=== PATIENT | male | born 1995 | race Caucasian/White ===

== ENCOUNTER 2016-09-06 10:00 | Emergency (ER) | payer OTHER ==
[2016-09-06] MEDS ORDERED: KETOROLAC 30 MG/ML VIAL (J1885) As Ordered ONE (10:55)
[2016-09-06 11:00] LABS: BASO % 0.3 % (0.0-1.0); EOS # 0.3 K/mm3 (0.0-0.50); EOS % 1.9 % (0.0-3.0); LARGE UNSTAINED CELL # 0.2 K/mm3 (0.0-0.4); LARGE UNSTAINED CELL % 1.4 % (0.0-4.0); LYMPH # 2.1 K/mm3 (1.5-6.5); LYMPH % 13.9 % (24.0-44.0); MEAN CORPUSCULAR HEMOGLOBIN 31.7 pg (27.0-33.0); MEAN CORPUSCULAR HGB CONC 35.6 g/dl (32.0-36.5); MEAN CORPUSCULAR VOLUME 89.2 fl (80.0-96.0); MONO # 0.6 K/mm3 (0.0-0.8); MONO % 4.2 % (0.0-5.0); NEUTROPHILS # 11.6 K/mm3 (1.8-7.7); NEUTROPHILS % 78.3 % (36.0-66.0); PLATELET COUNT, AUTOMATED 238 k/mm3 (150-450); RED CELL DISTRIBUTION WIDTH 11.9 % (11.5-14.5); WHITE BLOOD COUNT 14.8 K/mm3 (4.0-10.0)
[2016-09-06 11:29] LABS: ALBUMIN/GLOBULIN RATIO 0.98 (1.00-1.93); ALKALINE PHOSPHATASE 74 U/L (45-117); ALT/SGPT 54 U/L (12-78); ANION GAP 6 MEQ/L (8-16); AST/SGOT 41 U/L (15-37); BILIRUBIN,DIRECT 0.2 MG/DL (0.0-0.2); BILIRUBIN,TOTAL 0.6 MG/DL (0.2-1.0); BLOOD UREA NITROGEN 11 MG/DL (7-18); CALCIUM LEVEL 9.1 MG/DL (8.5-10.1); CARBON DIOXIDE LEVEL 30 MEQ/L (21-32); CHLORIDE LEVEL 103 MEQ/L (98-107); GLOMERULAR FILTRATION RATE > 60.0 (>60); GLUCOSE, FASTING 81 MG/DL (70-105); POTASSIUM SERUM 3.9 MEQ/L (3.5-5.1); SODIUM LEVEL 139 MEQ/L (136-145); TOTAL PROTEIN 8.1 GM/DL (6.4-8.2)
[2016-09-06] MEDS ORDERED: ISOVUE-370 76% 100ML VIAL (Q9967) As Ordered ONE (11:36)
--- NOTE | 2016-09-06 12:12 | REP ---
Clinical: Right-sided pain. Technique: Axial contrast enhanced images from the lung bases to the pubic symphysis using 100 ml Isovue 370 intravenous contrast material with coronal and sagittal re-formations. Findings: Mural thickening with excessive submucosal fatty deposition involving the ascending through hepatic flexure of colon is appreciated along with right-sided diverticula and what appears to be surrounding inflammatory changes related to an inflamed diverticulum at the hepatic flexure (image [id number]) suggesting acute right-sided diverticulitis. The appendix is identified and measures up to 10 mm maximal diameter suggesting the possibility of associated appendicitis however no significant focal periappendiceal inflammatory changes are appreciated and findings may be secondary to the suspected diverticulitis. The remainder of the small large bowel is unremarkable. Liver, spleen, pancreas, collapsed gallbladder, bilateral adrenal glands and kidneys are normal. Pelvis demonstrates collapsed bladder and age appropriate prostate/seminal vesicles. No ascites. No free air. No significant adenopathy. Vascular structures are normal. Lung bases are clear. Impression: Findings involving the ascending colon as described above suggest primary right-sided diverticulitis with possible early inflammatory changes to the appendix. Given the excessive fatty deposition within the cecum and ascending colon as well as possible involvement to the terminal ileum, differential diagnosis includes inflammatory bowel disease such as Crohn's disease. Signed by Rony Yao MD 09/06/2016 12:03 P
--- NOTE | 2016-09-06 15:10 | EDDOCDS ---
Physician Documentation [facility] Name: Linwood Yeboah Age: 21 yrs Sex: Male : 1995 Arrival Date: 09/06/2016 Time: 10:00 Bed I5 / M5 Private MD: [facility] Disposition: 09/06/16 14:37 Discharged to Home/Self Care. Impression: Diverticulitis of large intestine without perforation or abscess without bleeding - right sided. . - Condition is Stable. - Discharge Instructions: Clear Liquid Diet, Diverticulitis. - Prescriptions for Cipro 500 mg Oral Tablet - take 1 tablet by ORAL route every 12 hours; 14 tablet. Metronidazole 500 mg Oral Tablet - take 1 tablet by ORAL route every 8 hours; 28 tablet. - Work Release Form - 3 day, Medication Reconciliation, Local Pharmacy Hours form. - Follow up: Emergency Department; When: As needed; Reason: Worsening of conditions. Follow up: [facility]; When: 1 - 2 days; Reason: Wound/Symptom Recheck, Recheck today's complaints, Worsening of conditions, Continuance of care. - Problem is an ongoing problem. - Symptoms have improved. Historical: - Allergies: No known drug Allergies; - Home Meds: 1. none - PMHx: none; - PSHx: elbow, left; Knee surgery- Left; - Social history: Smoking status: Patient uses tobacco products, heavy tobacco smoker. No barriers to communication noted, The patient speaks fluent Hebrew, Speaks appropriately for age. - Family history: Not pertinent. - : The pt / caregiver states he / she is not on anticoagulants. Home medication list is obtained from the patient. - Exposure Risk Screening:: None identified. Vital Signs: 09/06 10:01 BP 138 / 73; Pulse 104; Resp 16; Temp 98.3(O); Pulse Ox 99% ; Weight 90.72 kg / 200 cmb lbs; Height 6 ft. 0 in. (182.88 cm); Pain 4/10; 11:48 BP 124 / 63; Pulse 86; Resp 18; Temp 97.5; Pulse Ox 97% ; Pain 4/10; srm 14:40 BP 119 / 78; Pulse 76; Resp 16; Temp 97.1(O); Pulse Ox 97% on R/A; Pain 4/10; jrd 10:01 Body Mass Index 27.12 (90.72 kg, 182.88 cm) cmb MDM: 10:43 NS 0.9% 1000 ml IV at bolus once ordered. cc10 10:43 ketorolac 30 mg IVP once ordered. cc10 10:43 IV Saline Lock ordered. cc10 10:43 Undress patient appropriately for examination ordered. cc10 10:44 Basic Metabolic Profile Ordered. EDMS 10:44 CBC with Diff Ordered. EDMS 10:44 Lipase Ordered. EDMS 10:44 Liver Profile Ordered. EDMS 10:44 Urinalysis Ordered. EDMS 10:44 CT ABD & PELVIS: IV Contrast Only Ordered. EDMS 10:44 NOTHING BY MOUTH+DIET ordered. EDMS 11:21 Financial registration complete. pm4 11:22 [facility] Payment Agreement was scanned into [employer] and attached to record. pm4 11:36 Basic Metabolic Profile Reviewed. cc10 11:36 CBC with Diff Reviewed. cc10 11:36 Liver Profile Reviewed. cc10 11:36 Lipase Reviewed. cc10 11:36 Urinalysis Reviewed. cc10 15:03 T-Sheet-- Draft Copy was scanned into [employer] and attached to record. gb Administered Medications: 10:56 Drug: NS 0.9% 1000 ml [sodium chloride 0.9 % intravenous solution] Route: IV; Rate: srm bolus; Site: left antecubital; 10:56 Drug: ketorolac 30 mg [ketorolac 30 mg/mL (1 mL) injection solution (1 mL)] Route: IVP; srm Site: left antecubital; 11:26 Follow up: Response: No Adverse Reaction; No significant change. ck1 11:48 Follow up: BP 124 / 63; Pulse 86 bpm; Resp 18 bpm; Temp 97.5; Pulse Ox 97% ; Pain 4/10 srm Adult Signatures: Dispatcher [employer] EDMS Jeanna Winston RN RN srm Susie Rain, Reg Reg gb Chevy Valenzuela RN RN dy [place]iski, Colin, PA-C PA-C cc10 Jose Santamaria, Reg Reg pm4 Kia Esquivel RN ck1 The chart was reviewed and I authenticate all verbal orders and agree with the evaluation and treatment provided.Attachments: 11: [facility] Payment Agreement pm4 15:03 T-Sheet-- Draft Copy gb MTDD
--- NOTE | 2016-09-06 15:10 | EDDOCDS ---
Nurse's Notes [facility] Name: Linwood Yeboah Age: 21 yrs Sex: Male : 1995 Arrival Date: 09/06/2016 Time: 10:00 Bed I5 / M5 [facility] Diagnosis: Diverticulitis of large intestine without perforation or abscess without bleeding-right sided. Presentation: 09/06 10:06 Presenting complaint: Patient states: RLQ pain for the last 2 days. pt denies fevers or dy chills. had some nausea yesterday. pain worse when pt pressed on that area. Risk factors: the patient reports not having a history of previous torsion. Adult Sepsis Screening: The patient does not have new or worsening altered mentation. Patient's respiratory rate is less than 22. Systolic blood pressure is greater than 100. Patient has a qSOFA score of 0- Negative Sepsis Screen. Suicide/Homicide risk assessment- the patient denies having any suicidal and/or homicidal ideations and does not present with any other emotional, behavioral or mental health complaints. Status: The patient is an active duty technical services representative. Transition of care: patient was not received from another setting of care. 10:06 Acuity: DARRIN Level 3 dy 10:06 Method Of Arrival: Walkin/Carried/Asstd dy Triage Assessment: 10:08 General: Appears in no apparent distress. Pain: Location: right lower quadrant Pain dy currently is 3 out of 10 on a pain scale. Pt Declines HIV testing. GI: Reports lower abdominal pain. Historical: - Allergies: No known drug Allergies; - Home Meds: 1. none - PMHx: none; - PSHx: elbow, left; Knee surgery- Left; - Social history: Smoking status: Patient uses tobacco products, heavy tobacco smoker. No barriers to communication noted, The patient speaks fluent [place] Korean, Speaks appropriately for age. - Family history: Not pertinent. - : The pt / caregiver states he / she is not on anticoagulants. Home medication list is obtained from the patient. - Exposure Risk Screening:: None identified. Screenin:53 Screening information is obtained from the patient. Fall risk: No risks identified. srm Assistance ADL's: requires no assistance with activities of daily living. Abuse/DV Screen: The patient / caregiver reports he/she is: not in a situation that causes fear, pain or injury. Nutritional screening: No deficits noted. Advance Directives: There is no active DNR order. home support is adequate. Assessment: 10:59 General: Appears in no apparent distress, Behavior is appropriate for age, cooperative. srm Neurological: No deficits noted. Respiratory: No deficits noted. GI: Abdomen is non- distended Bowel sounds present X 4 quads. Abd is soft X 4 quads Abd is tender to palpation in right lower quadrant. Derm: No deficits noted. 11:26 General: Appears in no apparent distress, comfortable, to be sleeping. Behavior is ck1 appropriate for age, cooperative. Pain: Location: right lower quadrant Pain currently is 4 out of 10 on a pain scale. Neurological: Level of Consciousness is awake, alert, obeys commands, Oriented to person, place, time. GI: Denies nausea, vomiting. Derm: Skin is intact, is healthy with good turgor, Skin is pink, warm & dry. 13:30 Reassessment: Patient appears in no apparent distress at this time. srm 15:07 General: Appears in no apparent distress, Behavior is appropriate for age, cooperative. srm Neurological: No deficits noted. Cardiovascular: No deficits noted. Respiratory: No deficits noted. : No deficits noted. Vital Signs: 10:01 BP 138 / 73; Pulse 104; Resp 16; Temp 98.3(O); Pulse Ox 99% ; Weight 90.72 kg; Height 6 cmb ft. 0 in. (182.88 cm); Pain 4/10; 11:48 BP 124 / 63; Pulse 86; Resp 18; Temp 97.5; Pulse Ox 97% ; Pain 4/10; srm 14:40 BP 119 / 78; Pulse 76; Resp 16; Temp 97.1(O); Pulse Ox 97% on R/A; Pain 4/10; jrd 10:01 Body Mass Index 27.12 (90.72 kg, 182.88 cm) [facility] Vitals: 10:01 Log In Time: September 06, 2016 at 10:00. cmb ED Course: 10:00 Patient visited by Purnima Field. cmb 10:00 Patient moved to Waiting cmb 10:01 [facility] LANIER is Private Physician. cmb 10:02 Patient moved to Pre RCE cmb 10:07 Triage Initiated dy 10:17 Patient moved to Triage 3 dy 10:32 Margarito Tran PA-C is PHCP. cc10 10:32 Taras Butt MD is Attending Physician. cc10 10:38 Patient visited by Margarito Tran PA-C. cc10 10:38 Patient visited by Margarito Tran PA-C. cc10 10:42 Patient moved to I5 / M5 rs6 10:52 The patient / caregiver is instructed regarding the plan of care and ED course. Patient srm has correct armband on for positive identification. Placed in gown. Bed in low position. Call light in reach. 10:52 Basic Metabolic Profile Sent. srm 10:52 CBC with Diff Sent. srm 10:52 Lipase Sent. srm 10:52 Liver Profile Sent. srm 10:52 Urinalysis Sent. srm 10:52 Inserted saline lock: 20 gauge in left antecubital area and blood collected. srm 11:00 Patient visited by Jeanna Winston, SHILOH. srm 11:22 [facility] Payment Agreement was scanned into [employer] and attached to record. pm4 11:27 Patient visited by Kia Esquivel,SHILOH. ck1 11:[address] srm 11:46 Patient moved to I5 / M5 srm 11:49 Patient visited by Jeanna Winston, SHILOH. srm 12:19 CT ABD & PELVIS: IV Contrast Only Returned. EDMS 12:54 Patient visited by Kia Esquivel,SHILOH. ck1 13:30 Discontinued lock intact, bleeding controlled, pressure dressing applied, No srm redness/swelling at site. No procedures done that require assistance. 14:37 [facility] is Referral Physician. cc10 14:40 Patient visited by Dain Salamanca PCA. jrd 15:03 T-Sheet-- Draft Copy was scanned into [employer] and attached to record. gb Administered Medications: 10:56 Drug: NS 0.9% 1000 ml [sodium chloride 0.9 % intravenous solution] Route: IV; Rate: srm bolus; Site: left antecubital; 10:56 Drug: ketorolac 30 mg [ketorolac 30 mg/mL (1 mL) injection solution (1 mL)] Route: IVP; srm Site: left antecubital; 11:26 Follow up: Response: No Adverse Reaction; No significant change. ck1 11:48 Follow up: BP 124 / 63; Pulse 86 bpm; Resp 18 bpm; Temp 97.5; Pulse Ox 97% ; Pain 4/10 [facility] Adult Intake: 13:30 IV: 1000.00ml (NS); Total: 1000.00ml. srm Order Results: Lab Order: Basic Metabolic Profile; SPEC'M 09/06/16 10:48 Test: GLUCOSE, FASTING; Value: 81; Range: 70-105; Units: MG/DL; Status: F Test: BLOOD UREA NITROGEN; Value: 11; Range: 7-18; Units: MG/DL; Status: F Test: CREATININE FOR GFR; Value: 1.10; Range: 0.70-1.30; Units: MG/DL; Status: F Test: GLOMERULAR FILTRATION RATE; Value: > 60.0; Range: >60; Status: F Test: SODIUM LEVEL; Value: 139; Range: 136-145; Units: MEQ/L; Status: F Test: POTASSIUM SERUM; Value: 3.9; Range: 3.5-5.1; Units: MEQ/L; Status: F Test: CHLORIDE LEVEL; Value: 103; Range: 98-107; Units: MEQ/L; Status: F Test: CARBON DIOXIDE LEVEL; Value: 30; Range: 21-32; Units: MEQ/L; Status: F Test: ANION GAP; Value: 6; Range: 8-16; Abnormal: Below low normal; Units: MEQ/L; Status: F Test: CALCIUM LEVEL; Value: 9.1; Range: 8.5-10.1; Units: MG/DL; Status: F Test Note: ; Units are mL/min/1.73 m2 Chronic Kidney Disease Staging per NKF: Stage I & II GFR >=60 Normal to Mildly Decreased Stage III GFR 30-59 Moderately Decreased Stage IV GFR 15-29 Severely Decreased Stage V GFR <15 Very Little GFR Left ESRD GFR <15 on RECYCLE WORKER Lab Order: CBC with Diff; SPEC'M 09/06/16 10:48 Test: WHITE BLOOD COUNT; Value: 14.8; Range: 4.0-10.0; Abnormal: Above high normal; Units: K/mm3; Status: F Test: RED BLOOD COUNT; Value: 4.95; Range: 4.30-6.10; Units: M/mm3; Status: F Test: HEMOGLOBIN; Value: 15.7; Range: 14.0-18.0; Units: g/dl; Status: F Test: HEMATOCRIT; Value: 44.1; Range: 42.0-52.0; Units: %; Status: F Test: MEAN CORPUSCULAR VOLUME; Value: 89.2; Range: 80.0-96.0; Units: fl; Status: F Test: MEAN CORPUSCULAR HEMOGLOBIN; Value: 31.7; Range: 27.0-33.0; Units: pg; Status: F Test: MEAN CORPUSCULAR HGB CONC; Value: 35.6; Range: 32.0-36.5; Units: g/dl; Status: F Test: RED CELL DISTRIBUTION WIDTH; Value: 11.9; Range: 11.5-14.5; Units: %; Status: F Test: PLATELET COUNT, AUTOMATED; Value: 238; Range: 150-450; Units: k/mm3; Status: F Test: NEUTROPHILS %; Value: 78.3; Range: 36.0-66.0; Abnormal: Above high normal; Units: %; Status: F Test: LYMPH %; Value: 13.9; Range: 24.0-44.0; Abnormal: Below low normal; Units: %; Status: F Test: MONO %; Value: 4.2; Range: 0.0-5.0; Units: %; Status: F Test: EOS %; Value: 1.9; Range: 0.0-3.0; Units: %; Status: F Test: BASO %; Value: 0.3; Range: 0.0-1.0; Units: %; Status: F Test: LARGE UNSTAINED CELL %; Value: 1.4; Range: 0.0-4.0; Units: %; Status: F Test: NEUTROPHILS #; Value: 11.6; Range: 1.8-7.7; Abnormal: Above high normal; Units: K/mm3; Status: F Test: LYMPH #; Value: 2.1; Range: 1.5-6.5; Units: K/mm3; Status: F Test: MONO #; Value: 0.6; Range: 0.0-0.8; Units: K/mm3; Status: F Test: EOS #; Value: 0.3; Range: 0.0-0.50; Units: K/mm3; Status: F Test: BASO #; Value: 0.0; Range: 0.0-0.2; Units: K/mm3; Status: F Test: LARGE UNSTAINED CELL #; Value: 0.2; Range: 0.0-0.4; Units: K/mm3; Status: F Lab Order: Lipase; SPEC'M 09/06/16 10:48 Test: LIPASE; Value: 79; Range: 73-393; Units: U/L; Status: F Lab Order: Liver Profile; SPEC'M 09/06/16 10:48 Test: AST/SGOT; Value: 41; Range: 15-37; Abnormal: Above high normal; Units: U/L; Status: F Test: ALT/SGPT; Value: 54; Range: 12-78; Units: U/L; Status: F Test: ALKALINE PHOSPHATASE; Value: 74; Range: 45-117; Units: U/L; Status: F Test: BILIRUBIN,TOTAL; Value: 0.6; Range: 0.2-1.0; Units: MG/DL; Status: F Test: BILIRUBIN,DIRECT; Value: 0.2; Range: 0.0-0.2; Units: MG/DL; Status: F Test: TOTAL PROTEIN; Value: 8.1; Range: 6.4-8.2; Units: GM/DL; Status: F Test: ALBUMIN; Value: 4.0; Range: 3.2-5.2; Units: GM/DL; Status: F Test: ALBUMIN/GLOBULIN RATIO; Value: 0.98; Range: 1.00-1.93; Abnormal: Below low normal; Status: F Lab Order: Urinalysis; SPEC'M 09/06/16 10:49 Test: APPEARANCE, URINE; Value: CLEAR; Range: CLEAR; Status: F Test: COLOR, URINE; Value: YELLOW; Range: YELLOW; Status: F Test: PH,URINE; Value: 6.0; Range: 5.0-9.0; Units: UNITS; Status: F Test: SPECIFIC GRAVITY URINE AUTO; Value: 1.024; Range: 1.002-1.035; Status: F Test: PROTEIN, URINE AUTO; Value: NEGATIVE; Range: NEGATIVE; Units: mg/dL; Status: F Test: GLUCOSE, URINE (UA) AUTO; Value: NEGATIVE; Range: NEGATIVE; Units: mg/dL; Status: F Test: KETONE, URINE AUTO; Value: NEGATIVE; Range: NEGATIVE; Units: mg/dL; Status: F Test: UROBILINOGEN, URINE AUTO; Value: 0.2; Range: 0.0-2.0; Units: mg/dL; Status: F Test: BILIRUBIN, URINE AUTO; Value: NEGATIVE; Range: NEGATIVE; Status: F Test: NITRITE, URINE AUTO; Value: NEGATIVE; Range: NEGATIVE; Status: F Test: LEUKOCYTE ESTERASE, URINE AUTO; Value: NEGATIVE; Range: NEGATIVE; Status: F Test: BLOOD, URINE BLOOD; Value: NEGATIVE; Range: NEGATIVE; Status: F Test: WBC, URINE AUTO; Value: 1; Range: 0-3; Units: /HPF; Status: F Test: RBC, URINE AUTO; Value: 0; Range: 0-3; Units: /HPF; Status: F Test: BACTERIA, URINE AUTO; Value: NEGATIVE; Range: NEGATIVE; Status: F Test: SQUAMOUS EPITHELIAL CELL UR AU; Value: 0; Range: 0-6; Units: /HPF; Status: F Test: MUCUS, URINE; Value: SMALL; Range: NEGATIVE; Status: F Test: HYALINE CAST, URINE AUTO; Value: 0; Range: 0-1; Units: /LPF; Status: F Radiology Order: CT ABD & PELVIS: IV Contrast Only Test: CT ABD & PELVIS: IV Contrast Only REASON FOR EXAMINATION: Appendicitis; Clinical: Right-sided pain.; ; Technique: Axial contrast enhanced images from the lung bases to the pubic; symphysis using 100 ml Isovue 370 intravenous contrast material with coronal and; sagittal re-formations.; ; Findings:; Mural thickening with excessive submucosal fatty deposition involving the; ascending through hepatic flexure of colon is appreciated along with right-sided; diverticula and what appears to be surrounding inflammatory changes related to an; inflamed diverticulum at the hepatic flexure (image [id number]) suggesting acute; right-sided diverticulitis. The appendix is identified and measures up to 10 mm; maximal diameter suggesting the possibility of associated appendicitis however no; significant focal periappendiceal inflammatory changes are appreciated and; findings may be secondary to the suspected diverticulitis. The remainder of the; small large bowel is unremarkable.; ; Liver, spleen, pancreas, collapsed gallbladder, bilateral adrenal glands and; kidneys are normal. Pelvis demonstrates collapsed bladder and age appropriate; prostate/seminal vesicles. No ascites. No free air. No significant adenopathy.; Vascular structures are normal. Lung bases are clear.; ; Impression:; Findings involving the ascending colon as described above suggest primary; right-sided diverticulitis with possible early inflammatory changes to the; appendix. Given the excessive fatty deposition within the cecum and ascending; colon as well as possible involvement to the terminal ileum, differential; diagnosis includes inflammatory bowel disease such as Crohn's disease.; ; ; Signed by; Rony Yao MD 09/06/2016 12:03 P; Outcome: 11:42 CT Study completed. ck1 13:30 Discharge Assessment: Patient awake, alert and oriented x 3. No cognitive and/or srm functional deficits noted. Patient verbalized understanding of disposition instructions. patient administered narcotics -. 14:37 Discharge ordered by Provider. cc10 15:08 Discharge Assessment: patient administered narcotics - no. The following High Risk srm Discharge criteria are identified: None. Discharged to home ambulatory, with family. Condition: good Condition: stable. Discharge instructions given to patient, Instructed on discharge instructions, follow up and referral plans. medication usage, Demonstrated understanding of instructions, medications, Pt was receptive of discharge instructions/ teaching. Prescriptions given X 2, Work note provided to patient. Property sent home with patient. 15:08 Patient left the ED. srm Signatures: Dispatcher [employer] EDMS Jeanna Winston, RN SHILOH srm Susie Rain, Reg Reg gb Chevy Valenzuela RN RN dy Kim-Ashcraft, Connie, RN RN ck1 Purnima Field Colin, PA-C PA-C cc10 Dain Salamanca, COMPUTERIZED MILL RECORDER COMPUTERIZED MILL RECORDER jrd Emily Bangura, COMPUTERIZED MILL RECORDER COMPUTERIZED MILL RECORDER rs6 Jose Santamaria, Reg Reg pm4 MTDD
--- NOTE | 2016-09-08 16:10 | EDDOCDS ---
Physician Documentation [facility] Name: Linwood Yeboah Age: 21 yrs Sex: Male : 1995 Arrival Date: 09/06/2016 Time: 10:00 Bed I5 / M5 Private MD: [facility] Disposition: 09/06/16 14:37 Discharged to Home/Self Care. Impression: Diverticulitis of large intestine without perforation or abscess without bleeding - right sided. . - Condition is Stable. - Discharge Instructions: Clear Liquid Diet, Diverticulitis. - Prescriptions for Cipro 500 mg Oral Tablet - take 1 tablet by ORAL route every 12 hours; 14 tablet. Metronidazole 500 mg Oral Tablet - take 1 tablet by ORAL route every 8 hours; 28 tablet. - Work Release Form - 3 day, Medication Reconciliation, Local Pharmacy Hours form. - Follow up: Emergency Department; When: As needed; Reason: Worsening of conditions. Follow up: [facility]; When: 1 - 2 days; Reason: Wound/Symptom Recheck, Recheck today's complaints, Worsening of conditions, Continuance of care. - Problem is an ongoing problem. - Symptoms have improved. Historical: - Allergies: No known drug Allergies; - Home Meds: 1. none - PMHx: none; - PSHx: elbow, left; Knee surgery- Left; - Social history: Smoking status: Patient uses tobacco products, heavy tobacco smoker. No barriers to communication noted, The patient speaks fluent Japanese, Speaks appropriately for age. - Family history: Not pertinent. - : The pt / caregiver states he / she is not on anticoagulants. Home medication list is obtained from the patient. - Exposure Risk Screening:: None identified. Vital Signs: 09/06 10:01 BP 138 / 73; Pulse 104; Resp 16; Temp 98.3(O); Pulse Ox 99% ; Weight 90.72 kg / 200 cmb lbs; Height 6 ft. 0 in. (182.88 cm); Pain 4/10; 11:48 BP 124 / 63; Pulse 86; Resp 18; Temp 97.5; Pulse Ox 97% ; Pain 4/10; srm 14:40 BP 119 / 78; Pulse 76; Resp 16; Temp 97.1(O); Pulse Ox 97% on R/A; Pain 4/10; jrd 10:01 Body Mass Index 27.12 (90.72 kg, 182.88 cm) cmb MDM: 10:43 NS 0.9% 1000 ml IV at bolus once ordered. cc10 10:43 ketorolac 30 mg IVP once ordered. cc10 10:43 IV Saline Lock ordered. cc10 10:43 Undress patient appropriately for examination ordered. cc10 10:44 Basic Metabolic Profile Ordered. EDMS 10:44 CBC with Diff Ordered. EDMS 10:44 Lipase Ordered. EDMS 10:44 Liver Profile Ordered. EDMS 10:44 Urinalysis Ordered. EDMS 10:44 CT ABD & PELVIS: IV Contrast Only Ordered. EDMS 10:44 NOTHING BY MOUTH+DIET ordered. EDMS 11:21 Financial registration complete. pm4 11:22 [facility] Payment Agreement was scanned into [employer] and attached to record. pm4 11:36 Basic Metabolic Profile Reviewed. cc10 11:36 CBC with Diff Reviewed. cc10 11:36 Liver Profile Reviewed. cc10 11:36 Lipase Reviewed. cc10 11:36 Urinalysis Reviewed. cc10 15:03 T-Sheet-- Draft Copy was scanned into [employer] and attached to record. gb 09/07 09:08 Other: PROGRESS NOTES was scanned into [employer] and attached to record. gb 13:03 ED course: [facility] faxed formal report of ct abd/p for fu mlg. ml Administered Medications: 09/06 10:56 Drug: NS 0.9% 1000 ml [sodium chloride 0.9 % intravenous solution] Route: IV; Rate: srm bolus; Site: left antecubital; 10:56 Drug: ketorolac 30 mg [ketorolac 30 mg/mL (1 mL) injection solution (1 mL)] Route: IVP; srm Site: left antecubital; 11:26 Follow up: Response: No Adverse Reaction; No significant change. ck1 11:48 Follow up: BP 124 / 63; Pulse 86 bpm; Resp 18 bpm; Temp 97.5; Pulse Ox 97% ; Pain 4/10 srm Adult Signatures: Dispatcher [employer] EDMD Taras Butt MD MD ml Michelson, Staci, SHILOH RN srm Susie Rain, Reg Reg Chevy Valenzuela RN RN dy Margarito Tran, PA-C PA-C cc10 Jose Santamaria, Reg Reg pm4 Kia Esquivel RN ck1 The chart was reviewed and I authenticate all verbal orders and agree with the evaluation and treatment provided.Attachments: 11: [facility] Payment Agreement pm4 15:03 T-Sheet-- Draft Copy gb Chart Complete MTDD
--- NOTE | 2016-09-08 16:10 | EDDOCDS ---
Physician Documentation [facility] Name: Linwood Yeboah Age: 21 yrs Sex: Male : 1995 Arrival Date: 09/06/2016 Time: 10:00 Bed I5 / M5 Private MD: [facility] Disposition: 09/06/16 14:37 Discharged to Home/Self Care. Impression: Diverticulitis of large intestine without perforation or abscess without bleeding - right sided. . - Condition is Stable. - Discharge Instructions: Clear Liquid Diet, Diverticulitis. - Prescriptions for Cipro 500 mg Oral Tablet - take 1 tablet by ORAL route every 12 hours; 14 tablet. Metronidazole 500 mg Oral Tablet - take 1 tablet by ORAL route every 8 hours; 28 tablet. - Work Release Form - 3 day, Medication Reconciliation, Local Pharmacy Hours form. - Follow up: Emergency Department; When: As needed; Reason: Worsening of conditions. Follow up: [facility]; When: 1 - 2 days; Reason: Wound/Symptom Recheck, Recheck today's complaints, Worsening of conditions, Continuance of care. - Problem is an ongoing problem. - Symptoms have improved. Historical: - Allergies: No known drug Allergies; - Home Meds: 1. none - PMHx: none; - PSHx: elbow, left; Knee surgery- Left; - Social history: Smoking status: Patient uses tobacco products, heavy tobacco smoker. No barriers to communication noted, The patient speaks fluent Kyrgyz, Speaks appropriately for age. - Family history: Not pertinent. - : The pt / caregiver states he / she is not on anticoagulants. Home medication list is obtained from the patient. - Exposure Risk Screening:: None identified. Vital Signs: 09/06 10:01 BP 138 / 73; Pulse 104; Resp 16; Temp 98.3(O); Pulse Ox 99% ; Weight 90.72 kg / 200 cmb lbs; Height 6 ft. 0 in. (182.88 cm); Pain 4/10; 11:48 BP 124 / 63; Pulse 86; Resp 18; Temp 97.5; Pulse Ox 97% ; Pain 4/10; srm 14:40 BP 119 / 78; Pulse 76; Resp 16; Temp 97.1(O); Pulse Ox 97% on R/A; Pain 4/10; jrd 10:01 Body Mass Index 27.12 (90.72 kg, 182.88 cm) cmb MDM: 10:43 NS 0.9% 1000 ml IV at bolus once ordered. cc10 10:43 ketorolac 30 mg IVP once ordered. cc10 10:43 IV Saline Lock ordered. cc10 10:43 Undress patient appropriately for examination ordered. cc10 10:44 Basic Metabolic Profile Ordered. EDMS 10:44 CBC with Diff Ordered. EDMS 10:44 Lipase Ordered. EDMS 10:44 Liver Profile Ordered. EDMS 10:44 Urinalysis Ordered. EDMS 10:44 CT ABD & PELVIS: IV Contrast Only Ordered. EDMS 10:44 NOTHING BY MOUTH+DIET ordered. EDMS 11:21 Financial registration complete. pm4 11:22 [facility] Payment Agreement was scanned into [employer] and attached to record. pm4 11:36 Basic Metabolic Profile Reviewed. cc10 11:36 CBC with Diff Reviewed. cc10 11:36 Liver Profile Reviewed. cc10 11:36 Lipase Reviewed. cc10 11:36 Urinalysis Reviewed. cc10 15:03 T-Sheet-- Draft Copy was scanned into [employer] and attached to record. gb 09/07 09:08 Other: PROGRESS NOTES was scanned into [employer] and attached to record. gb 13:03 ED course: [facility] faxed formal report of ct abd/p for fu mlg. ml Administered Medications: 09/06 10:56 Drug: NS 0.9% 1000 ml [sodium chloride 0.9 % intravenous solution] Route: IV; Rate: srm bolus; Site: left antecubital; 10:56 Drug: ketorolac 30 mg [ketorolac 30 mg/mL (1 mL) injection solution (1 mL)] Route: IVP; srm Site: left antecubital; 11:26 Follow up: Response: No Adverse Reaction; No significant change. ck1 11:48 Follow up: BP 124 / 63; Pulse 86 bpm; Resp 18 bpm; Temp 97.5; Pulse Ox 97% ; Pain 4/10 srm Adult Signatures: Dispatcher [employer] EDAR Taras Butt MD MD ml Michelson, Staci, SHILOH RN srm Susie Rain, Reg Reg Chevy Valenzuela RN RN dy Margarito Tran, PA-C PA-C cc10 Jose Santamaria, Reg Reg pm4 Kia Esquivel RN ck1 The chart was reviewed and I authenticate all verbal orders and agree with the evaluation and treatment provided.Attachments: 11: [facility] Payment Agreement pm4 15:03 T-Sheet-- Draft Copy gb Chart Complete MTDD
--- NOTE | 2016-09-08 16:11 | EDDOCDS ---
Nurse's Notes [facility] Name: Linwood Yeboah Age: 21 yrs Sex: Male : 1995 Arrival Date: 09/06/2016 Time: 10:00 Bed I5 / M5 [facility] Diagnosis: Diverticulitis of large intestine without perforation or abscess without bleeding-right sided. Presentation: 09/06 10:06 Presenting complaint: Patient states: RLQ pain for the last 2 days. pt denies fevers or dy chills. had some nausea yesterday. pain worse when pt pressed on that area. Risk factors: the patient reports not having a history of previous torsion. Adult Sepsis Screening: The patient does not have new or worsening altered mentation. Patient's respiratory rate is less than 22. Systolic blood pressure is greater than 100. Patient has a qSOFA score of 0- Negative Sepsis Screen. Suicide/Homicide risk assessment- the patient denies having any suicidal and/or homicidal ideations and does not present with any other emotional, behavioral or mental health complaints. 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 Transition of care: patient was not received from another setting of care. 10:06 Acuity: DARRIN Level 3 dy 10:06 Method Of Arrival: Walkin/Carried/Asstd dy Triage Assessment: 10:08 General: Appears in no apparent distress. Pain: Location: right lower quadrant Pain dy currently is 3 out of 10 on a pain scale. Pt Declines HIV testing. GI: Reports lower abdominal pain. Historical: - Allergies: No known drug Allergies; - Home Meds: 1. none - PMHx: none; - PSHx: elbow, left; Knee surgery- Left; - Social history: Smoking status: Patient uses tobacco products, heavy tobacco smoker. No barriers to communication noted, The patient speaks fluent French, Speaks appropriately for age. - Family history: Not pertinent. - : The pt / caregiver states he / she is not on anticoagulants. Home medication list is obtained from the patient. - Exposure Risk Screening:: None identified. Screenin:53 Screening information is obtained from the patient. Fall risk: No risks identified. srm Assistance ADL's: requires no assistance with activities of daily living. Abuse/DV Screen: The patient / caregiver reports he/she is: not in a situation that causes fear, pain or injury. Nutritional screening: No deficits noted. Advance Directives: There is no active DNR order. home support is adequate. Assessment: 10:59 General: Appears in no apparent distress, Behavior is appropriate for age, cooperative. srm Neurological: No deficits noted. Respiratory: No deficits noted. GI: Abdomen is non- distended Bowel sounds present X 4 quads. Abd is soft X 4 quads Abd is tender to palpation in right lower quadrant. Derm: No deficits noted. 11:26 General: Appears in no apparent distress, comfortable, to be sleeping. Behavior is ck1 appropriate for age, cooperative. Pain: Location: right lower quadrant Pain currently is 4 out of 10 on a pain scale. Neurological: Level of Consciousness is awake, alert, obeys commands, Oriented to person, place, time. GI: Denies nausea, vomiting. Derm: Skin is intact, is healthy with good turgor, Skin is pink, warm & dry. 13:30 Reassessment: Patient appears in no apparent distress at this time. srm 15:07 General: Appears in no apparent distress, Behavior is appropriate for age, cooperative. srm Neurological: No deficits noted. Cardiovascular: No deficits noted. Respiratory: No deficits noted. : No deficits noted. Vital Signs: 10:01 BP 138 / 73; Pulse 104; Resp 16; Temp 98.3(O); Pulse Ox 99% ; Weight 90.72 kg; Height 6 cmb ft. 0 in. (182.88 cm); Pain 4/10; 11:48 BP 124 / 63; Pulse 86; Resp 18; Temp 97.5; Pulse Ox 97% ; Pain 4/10; srm 14:40 BP 119 / 78; Pulse 76; Resp 16; Temp 97.1(O); Pulse Ox 97% on R/A; Pain 4/10; jrd 10:01 Body Mass Index 27.12 (90.72 kg, 182.88 cm) [facility] Vitals: 10:01 Log In Time: September 06, 2016 at 10:00. cmb ED Course: 10:00 Patient visited by Purnima Field. cmb 10:00 Patient moved to Waiting cmb 10:01 [facility], [facility] LANIER is Private Physician. cmb 10:02 Patient moved to Pre RCE cmb 10:07 Triage Initiated dy 10:17 Patient moved to Triage 3 dy 10:32 Margarito Tran PA-C is PHCP. cc10 10:32 Taras Butt MD is Attending Physician. cc10 10:38 Patient visited by Margarito Tran PA-C. cc10 10:38 Patient visited by Margarito Tran PA-C. cc10 10:42 Patient moved to I5 / M5 rs6 10:52 The patient / caregiver is instructed regarding the plan of care and ED course. Patient srm has correct armband on for positive identification. Placed in gown. Bed in low position. Call light in reach. 10:52 Basic Metabolic Profile Sent. srm 10:52 CBC with Diff Sent. srm 10:52 Lipase Sent. srm 10:52 Liver Profile Sent. srm 10:52 Urinalysis Sent. srm 10:52 Inserted saline lock: 20 gauge in left antecubital area and blood collected. srm 11:00 Patient visited by Jeanna Winston, SHILOH. srm 11:22 [facility] Payment Agreement was scanned into [employer] and attached to record. pm4 11:27 Patient visited by Kia Esquivel,SHILOH. ck1 11:[address] srm 11:46 Patient moved to I5 / M5 srm 11:49 Patient visited by Jeanna Winston, SHILOH. srm 12:19 CT ABD & PELVIS: IV Contrast Only Returned. EDMS 12:54 Patient visited by Kia Esquivel,SHILOH. ck1 13:30 Discontinued lock intact, bleeding controlled, pressure dressing applied, No srm redness/swelling at site. No procedures done that require assistance. 14:37 [facility]. cc10 14:40 Patient visited by Dain Salamanca PCA. jrjarod 15:03 T-Sheet-- Draft Copy was scanned into [employer] and attached to record. gb 09/07 09:08 Other: PROGRESS NOTES was scanned into [employer] and attached to record. gb Administered Medications: 09/06 10:56 Drug: NS 0.9% 1000 ml [sodium chloride 0.9 % intravenous solution] Route: IV; Rate: srm bolus; Site: left antecubital; 10:56 Drug: ketorolac 30 mg [ketorolac 30 mg/mL (1 mL) injection solution (1 mL)] Route: IVP; [facility] Site: left antecubital; 11:26 Follow up: Response: No Adverse Reaction; No significant change. ck1 11:48 Follow up: BP 124 / 63; Pulse 86 bpm; Resp 18 bpm; Temp 97.5; Pulse Ox 97% ; Pain 4/10 [facility] Adult Intake: 13:30 IV: 1000.00ml (NS); Total: 1000.00ml. [facility] Order Results: Lab Order: Basic Metabolic Profile; SPEC'M 09/06/16 10:48 Test: GLUCOSE, FASTING; Value: 81; Range: 70-105; Units: MG/DL; Status: F Test: BLOOD UREA NITROGEN; Value: 11; Range: 7-18; Units: MG/DL; Status: F Test: CREATININE FOR GFR; Value: 1.10; Range: 0.70-1.30; Units: MG/DL; Status: F Test: GLOMERULAR FILTRATION RATE; Value: > 60.0; Range: >60; Status: F Test: SODIUM LEVEL; Value: 139; Range: 136-145; Units: MEQ/L; Status: F Test: POTASSIUM SERUM; Value: 3.9; Range: 3.5-5.1; Units: MEQ/L; Status: F Test: CHLORIDE LEVEL; Value: 103; Range: 98-107; Units: MEQ/L; Status: F Test: CARBON DIOXIDE LEVEL; Value: 30; Range: 21-32; Units: MEQ/L; Status: F Test: ANION GAP; Value: 6; Range: 8-16; Abnormal: Below low normal; Units: MEQ/L; Status: F Test: CALCIUM LEVEL; Value: 9.1; Range: 8.5-10.1; Units: MG/DL; Status: F Test Note: ; Units are mL/min/1.73 m2 Chronic Kidney Disease Staging per NKF: Stage I & II GFR >=60 Normal to Mildly Decreased Stage III GFR 30-59 Moderately Decreased Stage IV GFR 15-29 Severely Decreased Stage V GFR <15 Very Little GFR Left ESRD GFR <15 on HAM PUMPER Lab Order: CBC with Diff; SPEC'M 09/06/16 10:48 Test: WHITE BLOOD COUNT; Value: 14.8; Range: 4.0-10.0; Abnormal: Above high normal; Units: K/mm3; Status: F Test: RED BLOOD COUNT; Value: 4.95; Range: 4.30-6.10; Units: M/mm3; Status: F Test: HEMOGLOBIN; Value: 15.7; Range: 14.0-18.0; Units: g/dl; Status: F Test: HEMATOCRIT; Value: 44.1; Range: 42.0-52.0; Units: %; Status: F Test: MEAN CORPUSCULAR VOLUME; Value: 89.2; Range: 80.0-96.0; Units: fl; Status: F Test: MEAN CORPUSCULAR HEMOGLOBIN; Value: 31.7; Range: 27.0-33.0; Units: pg; Status: F Test: MEAN CORPUSCULAR HGB CONC; Value: 35.6; Range: 32.0-36.5; Units: g/dl; Status: F Test: RED CELL DISTRIBUTION WIDTH; Value: 11.9; Range: 11.5-14.5; Units: %; Status: F Test: PLATELET COUNT, AUTOMATED; Value: 238; Range: 150-450; Units: k/mm3; Status: F Test: NEUTROPHILS %; Value: 78.3; Range: 36.0-66.0; Abnormal: Above high normal; Units: %; Status: F Test: LYMPH %; Value: 13.9; Range: 24.0-44.0; Abnormal: Below low normal; Units: %; Status: F Test: MONO %; Value: 4.2; Range: 0.0-5.0; Units: %; Status: F Test: EOS %; Value: 1.9; Range: 0.0-3.0; Units: %; Status: F Test: BASO %; Value: 0.3; Range: 0.0-1.0; Units: %; Status: F Test: LARGE UNSTAINED CELL %; Value: 1.4; Range: 0.0-4.0; Units: %; Status: F Test: NEUTROPHILS #; Value: 11.6; Range: 1.8-7.7; Abnormal: Above high normal; Units: K/mm3; Status: F Test: LYMPH #; Value: 2.1; Range: 1.5-6.5; Units: K/mm3; Status: F Test: MONO #; Value: 0.6; Range: 0.0-0.8; Units: K/mm3; Status: F Test: EOS #; Value: 0.3; Range: 0.0-0.50; Units: K/mm3; Status: F Test: BASO #; Value: 0.0; Range: 0.0-0.2; Units: K/mm3; Status: F Test: LARGE UNSTAINED CELL #; Value: 0.2; Range: 0.0-0.4; Units: K/mm3; Status: F Lab Order: Lipase; SPEC'M 09/06/16 10:48 Test: LIPASE; Value: 79; Range: 73-393; Units: U/L; Status: F Lab Order: Liver Profile; SPECM 09/06/16 10:48 Test: AST/SGOT; Value: 41; Range: 15-37; Abnormal: Above high normal; Units: U/L; Status: F Test: ALT/SGPT; Value: 54; Range: 12-78; Units: U/L; Status: F Test: ALKALINE PHOSPHATASE; Value: 74; Range: 45-117; Units: U/L; Status: F Test: BILIRUBIN,TOTAL; Value: 0.6; Range: 0.2-1.0; Units: MG/DL; Status: F Test: BILIRUBIN,DIRECT; Value: 0.2; Range: 0.0-0.2; Units: MG/DL; Status: F Test: TOTAL PROTEIN; Value: 8.1; Range: 6.4-8.2; Units: GM/DL; Status: F Test: ALBUMIN; Value: 4.0; Range: 3.2-5.2; Units: GM/DL; Status: F Test: ALBUMIN/GLOBULIN RATIO; Value: 0.98; Range: 1.00-1.93; Abnormal: Below low normal; Status: F Lab Order: Urinalysis; SPEC09/06/16 10:49 Test: APPEARANCE, URINE; Value: CLEAR; Range: CLEAR; Status: F Test: COLOR, URINE; Value: YELLOW; Range: YELLOW; Status: F Test: PH,URINE; Value: 6.0; Range: 5.0-9.0; Units: UNITS; Status: F Test: SPECIFIC GRAVITY URINE AUTO; Value: 1.024; Range: 1.002-1.035; Status: F Test: PROTEIN, URINE AUTO; Value: NEGATIVE; Range: NEGATIVE; Units: mg/dL; Status: F Test: GLUCOSE, URINE (UA) AUTO; Value: NEGATIVE; Range: NEGATIVE; Units: mg/dL; Status: F Test: KETONE, URINE AUTO; Value: NEGATIVE; Range: NEGATIVE; Units: mg/dL; Status: F Test: UROBILINOGEN, URINE AUTO; Value: 0.2; Range: 0.0-2.0; Units: mg/dL; Status: F Test: BILIRUBIN, URINE AUTO; Value: NEGATIVE; Range: NEGATIVE; Status: F Test: NITRITE, URINE AUTO; Value: NEGATIVE; Range: NEGATIVE; Status: F Test: LEUKOCYTE ESTERASE, URINE AUTO; Value: NEGATIVE; Range: NEGATIVE; Status: F Test: BLOOD, URINE BLOOD; Value: NEGATIVE; Range: NEGATIVE; Status: F Test: WBC, URINE AUTO; Value: 1; Range: 0-3; Units: /HPF; Status: F Test: RBC, URINE AUTO; Value: 0; Range: 0-3; Units: /HPF; Status: F Test: BACTERIA, URINE AUTO; Value: NEGATIVE; Range: NEGATIVE; Status: F Test: SQUAMOUS EPITHELIAL CELL UR AU; Value: 0; Range: 0-6; Units: /HPF; Status: F Test: MUCUS, URINE; Value: SMALL; Range: NEGATIVE; Status: F Test: HYALINE CAST, URINE AUTO; Value: 0; Range: 0-1; Units: /LPF; Status: F Radiology Order: CT ABD & PELVIS: IV Contrast Only Test: CT ABD & PELVIS: IV Contrast Only REASON FOR EXAMINATION: Appendicitis; Clinical: Right-sided pain.; ; Technique: Axial contrast enhanced images from the lung bases to the pubic; symphysis using 100 ml Isovue 370 intravenous contrast material with coronal and; sagittal re-formations.; ; Findings:; Mural thickening with excessive submucosal fatty deposition involving the; ascending through hepatic flexure of colon is appreciated along with right-sided; diverticula and what appears to be surrounding inflammatory changes related to an; inflamed diverticulum at the hepatic flexure (image [id number]) suggesting acute; right-sided diverticulitis. The appendix is identified and measures up to 10 mm; maximal diameter suggesting the possibility of associated appendicitis however no; significant focal periappendiceal inflammatory changes are appreciated and; findings may be secondary to the suspected diverticulitis. The remainder of the; small large bowel is unremarkable.; ; Liver, spleen, pancreas, collapsed gallbladder, bilateral adrenal glands and; kidneys are normal. Pelvis demonstrates collapsed bladder and age appropriate; prostate/seminal vesicles. No ascites. No free air. No significant adenopathy.; Vascular structures are normal. Lung bases are clear.; ; Impression:; Findings involving the ascending colon as described above suggest primary; right-sided diverticulitis with possible early inflammatory changes to the; appendix. Given the excessive fatty deposition within the cecum and ascending; colon as well as possible involvement to the terminal ileum, differential; diagnosis includes inflammatory bowel disease such as Crohn's disease.; ; ; Signed by; Rony Yao MD 09/06/2016 12:03 P; Outcome: 11:42 CT Study completed. ck1 13:30 Discharge Assessment: Patient awake, alert and oriented x 3. No cognitive and/or srm functional deficits noted. Patient verbalized understanding of disposition instructions. patient administered narcotics -. 14:37 Discharge ordered by Provider. cc10 15:08 Discharge Assessment: patient administered narcotics - no. The following High Risk srm Discharge criteria are identified: None. Discharged to home ambulatory, with family. Condition: good Condition: stable. Discharge instructions given to patient, Instructed on discharge instructions, follow up and referral plans. medication usage, Demonstrated understanding of instructions, medications, Pt was receptive of discharge instructions/ teaching. Prescriptions given X 2, Work note provided to patient. Property sent home with patient. 15:08 Patient left the ED. srm Signatures: Dispatcher [employer] EDMS Jeanna Winston, RN RN srm Susie Rain, Reg Reg gb Chevy Valenzuela, RN Kia PatrickRN RN ck1 Purnima Field Colin, PA-C PA-C cc10 Dain Salamanca, APPLICATIONS SUPPORT LEAD APPLICATIONS SUPPORT LEAD jrd Emily Bangura, APPLICATIONS SUPPORT LEAD APPLICATIONS SUPPORT LEAD rs6 Jose Satnamaria, Reg Reg pm4 Chart Complete MTDD
== END 2016-09-06 15:08 | disposition home or self-care (01) ==
LOC: M ED 10:00
DX: K52.9 Noninfective gastroenteritis and colitis, unspecified (principal); Z72.0 Tobacco use
CPT/HCPCS: 36415; 74177; 80048; 80076; 81001; 83690; 85025; 96374; 99284; J1885; Q9967